=== PATIENT | female | born 1975 | race Caucasian/White ===

== ENCOUNTER 2019-02-03 17:15 | Emergency (ER) | payer MEDICAID ==
[~2019-02-03] VITALS: Ht 152.4 cm; Wt 46.8 kg
[2019-02-03 17:21] VITALS: BP 138/62; Ht 152.4 cm; Wt 46.8 kg
== END 2019-02-03 19:28 | disposition home or self-care (01) ==
LOC: D.ER 17:15
DX: M25.552 Pain in left hip (principal); M25.562 Pain in left knee; W08.XXXA Fall from other furniture, initial encounter; Y93.41 Activity, dancing; Y92.013 Bedroom of single-family (private) house as the place of occurrence of the external cause